=== PATIENT | male | born 1990 | race Caucasian/White ===

== ENCOUNTER 2024-03-10 12:23 | Emergency (ER) | payer OTHER ==
[~2024-03-10] VITALS: Ht 177.8 cm; Wt 116.6 kg
[2024-03-10 12:49] VITALS: BP 122/69; PULSE 92; RESP 17; TEMP 97.7; O2SAT 100
[2024-03-10] MEDS ORDERED: ONDA-188 PO (13:25)
[2024-03-10] MEDS ORDERED: FAMO-90 PO (13:25)
== END 2024-03-10 13:36 | disposition home or self-care (01) ==
LOC: MED 12:23
DX: R11.10 Vomiting, unspecified (principal); Z79.899 Other long term (current) drug therapy
CPT/HCPCS: 99283